=== PATIENT | female | born 1980 ===

== ENCOUNTER 2017-01-18 21:54 | Inpatient (IN) | payer MEDICARE, MEDICAID ==
[2017-01-18 22:09] VITALS: BMI 40.2
--- NOTE | 2017-01-18 23:17 | C.PDOC ---
History Of Present Illness A 36 year old female was recently discharged from [facility] earlier today and was [place]. Patient was BIBA. Patient denies any suicidal/homicidal ideation, fever, chills, or any other complaints. Time Seen by Provider: 01/18/17 22:07 Chief Complaint (Nursing): Psychiatric Evaluation History Per: Patient History/Exam Limitations: no limitations Onset/Duration Of Symptoms: Hrs Current Symptoms Are (Timing): Still Present Suicide/Self Injury Attempted (Context): None Modifying Factor(s): None Severity: None Associated Symptoms: denies: Suicidal Thoughts, Suicidal Plan Recent travel outside of the [place]: No Past Medical History Reviewed: Historical Data, Nursing Documentation, Vital Signs Vital Signs: Last Vital Signs Temp 98.4 F 01/18/17 22:26 Pulse 66 01/18/17 22:26 Resp 18 01/18/17 22:26 BP 144/85 01/18/17 22:26 Pulse Ox 97 01/18/17 23:19 - Medical History PMH: Asthma, Schizophrenia Family History: States: Unknown Family Hx - Social History Hx Alcohol Use: No Hx Substance Use: No - Immunization History Hx Tetanus Toxoid Vaccination: No Hx Influenza Vaccination: No Hx Pneumococcal Vaccination: No Review Of Systems Except As Marked, All Systems Reviewed And Found Negative. Constitutional: Negative for: Fever, Chills Gastrointestinal: Negative for: Nausea, Vomiting, Diarrhea Psych: Positive for: Other (Found wandering around at the bus station after being discharged from [facility] earlier today.). Negative for: Suicidal ideation Physical Exam - Physical Exam Appears: No Acute Distress, Confused, Other (Flat affect. Confused. Morbidly obese. NO apparent distress.) Skin: Normal Color, Warm, Dry Head: Atraumatic, Normacephalic Eye(s): bilateral: Normal Inspection Cardiovascular: Rhythm Regular Respiratory: Normal Breath Sounds, No Rales, No Rhonchi, No Wheezing Gastrointestinal/Abdominal: Soft, No Tenderness, No Guarding, No Rebound Extremity: Normal ROM, No Tenderness Neurological/Psych: Oriented x3 Gait: Steady ED Course And Treatment - Laboratory Results Result Diagrams: 01/18/17 23:55 01/18/17 23:55 Lab Interpretation: Normal (ua, tox, ASA/tylenol neg.) Urine POC: Negative O2 Sat by Pulse Oximetry: 97 Medical Decision Making Medical Decision Makin: persistent mental illness pending Crisis eval Disposition - Disposition Disposition Time: 01:00 Condition: GOOD - Clinical Impression Clinical Impression: Chronic mental illness - Scribe Statement The provider has reviewed the documentation as recorded by the Feiibmariely Draper Provider Scribe Attestation: All medical record entries made by the Scribe were at my direction and personally dictated by me. I have reviewed the chart and agree that the record accurately reflects my personal performance of the history, physical exam, medical decision making, and the department course for this patient. I have also personally directed, reviewed, and agree with the discharge instructions and disposition. Physician Patient Turnover Patient Signed Over To: [facility] Handoff Comments: pending Crisis Eval
[2017-01-19 00:04] LABS: BASO # 0.1 K/uL (0.0-0.2); BASO % 0.6 % (0.0-2.0); EOS # 0.1 K/uL (0.0-0.7); EOS % 0.6 % (0.0-4.0); HEMATOCRIT 40.5 % (34.0-47.0); LYMPH # 2.1 K/uL (1.0-4.3); LYMPH % 20.9 % (20.0-40.0); MEAN CORPUSCULAR HEMOGLOBIN 28.5 pg (27.0-31.0); MEAN CORPUSCULAR HGB CONC 32.8 g/dL (33.0-37.0); MEAN PLATELET VOLUME 8.7 fL (7.2-11.7); MONO # 0.7 K/uL (0.0-0.8); MONO % 6.5 % (0.0-10.0); RED CELL DISTRIBUTION WIDTH 13.7 % (11.5-14.5); WHITE BLOOD COUNT 10.1 K/uL (4.8-10.8)
[2017-01-19 00:10] LABS: RBC URINE 9 /hpf (0-3); URINE BACTERIA OCC (<OCC); URINE BILIRUBIN NEGATIVE (NEGATIVE); URINE COLOR Amber (YELLOW); URINE GLUCOSE (UA) NORMAL (Normal); URINE KETONE 2+ mg/dL (NEGATIVE); URINE LEUKOCYTE ESTERASE NEG Leu/uL (Negative); URINE PROTEIN 2+ mg/dL (NEGATIVE); URINE UROBILINOGEN NORMAL mg/dL (0.2-1.0); WBC URINE 3 /hpf (0-5)
[2017-01-19 00:11] LABS: URINE BLOOD 1+ (NEGATIVE)
[2017-01-19 00:13] LABS: CHLORIDE 95 mmol/L (98-107)
[2017-01-19 00:14] LABS: POTASSIUM 3.7 mmol/L (3.6-5.2); SODIUM 138 mmol/L (132-148)
[2017-01-19 00:16] LABS: AST/SGOT 46 U/L (14-36); BILIRUBIN,TOTAL 0.7 mg/dL (0.2-1.3); BLOOD UREA NITROGEN 11 mg/dL (7-17); CARBON DIOXIDE 26 mmol/L (22-30); GFR AFRICAN-AMERICAN > 60; TOTAL PROTEIN 8.6 g/dL (6.3-8.3)
[2017-01-19 00:17] LABS: ALCOHOL SERUM < 10 mg/dl (0-10); ALKALINE PHOSPHATASE 126 U/L (38-126); ALT/SGPT 55 U/L (9-52); GLUCOSE,RANDOM 128 mg/dL (65-105)
--- NOTE | 2017-01-19 07:52 | RAD ---
PROCEDURE: CHEST RADIOGRAPH, 1 VIEW HISTORY: baseline COMPARISON: None available. FINDINGS: LUNGS: Suboptimal portable study due to patient's body habitus and portable technique. Small perihilar opacity seen. PLEURA: No pneumothorax or pleural fluid seen. CARDIOVASCULAR: Left silhouette appears prominent in size this portable study. OSSEOUS STRUCTURES: No significant abnormalities. VISUALIZED UPPER ABDOMEN: Normal. OTHER FINDINGS: None. IMPRESSION: Suboptimal study due to portable technique and patient's body habitus. The possibility of mild congestion cannot be excluded. Follow-up exam is suggested.
[2017-01-19 08:39] VITALS: O2SAT 96
[2017-01-19 13:02] LABS: THYROID STIMULATING HORMONE 1.8 mIU/L (0.46-4.68)
[2017-01-19] MEDS ORDERED: Pneumococcal 23-Valent Vaccine IM ONE (13:30)
[2017-01-19] MEDS ORDERED: Vitamins A & D Oint UD Foilpak TOP PRN (16:25)
--- NOTE | 2017-01-19 17:47 | PCM.PSYCH ---
Initial Psychiatric Evaluation - Initial Psychiatric Evaluation History of Present Illness and Precipitating Events: Attempted to evaluate the patient, in the presence of her nurse and social sciences chair. Patient was confused but alert. Patient for every question patient reported she couldn't recall. Couldn't continue evaluation. We will medicate the patient and stabilize and will attempt to evaluate the patient tomorrow again. Current Medications: Active Medications Generic Name Dose Route Start Last Admin Trade Name Freq PRN Reason Stop Dose Admin Aripiprazole 10 mg 01/19/17 10:00 01/19/17 11:28 Abilify PO 10 mg DAILY SAQIB Administration Clotrimazole 1 gm 01/19/17 16:39 Lotrimin 1% TOP BID PRN fungal rash Haloperidol 5 mg 01/19/17 09:27 01/19/17 17:04 Haldol PO 5 mg Q1H PRN Administration agitation, max 4x/24h Hydroxyzine HCl 25 mg 01/19/17 09:27 Atarax PO Q4H PRN Anxiety Ibuprofen 600 mg 01/19/17 09:27 Motrin Tab PO Q6H PRN Pain, moderate (4-7) Lorazepam 1 mg 01/19/17 09:27 01/19/17 17:04 Ativan PO 1 mg Q6H PRN Administration severe anxiety or agitation Mirtazapine 15 mg 01/19/17 22:00 Remeron PO HS SAQIB Trazodone HCl 50 mg 01/19/17 09:27 Desyrel PO HS PRN Insomnia Vitamin A 1 ea 01/19/17 16:25 Vitamin A & D Oint Ud Foilpak TOP DAILY PRN Dry skin Past Psychiatric History - Past Psychiatric History Pertinent Medical Hx (Current Medical&Sleep Prob, Allergies): Allergies Allergy/AdvReac Type Severity Reaction Status Date / Time No Known Allergies Allergy Verified 01/18/17 22:09 Albuterol 0.5% Inhal Cecilia (5 mg/ ml) 20 ml 2 puff PO BID 01/18/17 Risperdal 1 mg pe PO BID 01/18/17
[2017-01-19] MEDS: Clotrimazole 1% Cream(30 gm) TOP PRN (21:31)
[2017-01-20] MEDS: Clotrimazole 1% Cream(30 gm) TOP PRN (13:10)
--- NOTE | 2017-01-20 14:16 | PCM.PSYCH ---
Initial Psychiatric Evaluation - Initial Psychiatric Evaluation Type of Admission: Voluntary Legal Status: Capacity Chief Complaint (in patient's own words): I'm struggling with different things including reading and singing History of Present Illness and Precipitating Events: Patient is a 36 years old, single, unemployed, female who was admitted because of bizarre behavior. Today patient was more clear in providing information but still patient was poor historian. Patient reported history of schizoaffective disorder noncompliant with treatment. Reported she was taking Abilify but stopped taking because of no food. Patient reported that she was homeless and was wandering on the train station, disoriented and was brought to [facility] ER and was admitted. Patient reported no depression but decreased sleep and appetite but gaining some weight. Reported having suicidal ideations at times. Last had few weeks ago with plan to cut her throat with a knife. Did not get any treatment. Reported history of one suicidal attempt by suffocation in the past as according to patient the voices were telling her to do so. Also reported having auditory hallucinations. Reported the voices tell her to do different things and tell her bad things. Reported sometimes they're command and telling her to kill herself and others. Reported as a result of those command hallucinations, once she heard her mother. Patient reported multiple psychiatric admissions in the past in different hospitals. Denied use of any drugs including alcohol cocaine cannabis and heroin. Patient was born in [place], was migrated to [facility] at the age of 7 years with family, has GED. Patient is not working. Her last job was in 2003. Stopped working because of psychiatric problems. Currently she is on SSDI. Her height is 5 feet 3 inches and weight is 354 pounds. Before coming to the hospital she [facility] jail. Current Medications: Active Medications Generic Name Dose Route Start Last Admin Trade Name Freq PRN Reason Stop Dose Admin Aripiprazole 10 mg 01/19/17 10:00 01/20/17 09:03 Abilify PO 10 mg DAILY SAQIB Administration Clotrimazole 1 gm 01/19/17 16:39 01/20/17 13:10 Lotrimin 1% TOP 1 applic BID PRN Administration fungal rash Haloperidol 5 mg 01/19/17 09:27 01/20/17 13:12 Haldol PO 5 mg Q1H PRN Administration agitation, max 4x/24h Hydroxyzine HCl 25 mg 01/19/17 09:27 01/20/17 09:03 Atarax PO 25 mg Q4H PRN Administration Anxiety Ibuprofen 600 mg 01/19/17 09:27 Motrin Tab PO Q6H PRN Pain, moderate (4-7) Lorazepam 1 mg 01/19/17 09:27 01/20/17 13:13 Ativan PO 1 mg Q6H PRN Administration severe anxiety or agitation Mirtazapine 15 mg 01/19/17 22:00 01/19/17 21:24 Remeron PO 15 mg HS SAQIB Administration Nitrofurantoin Macrocrystals 100 mg 01/20/17 14:15 Macrobid PO 01/26/17 14:15 Q12H SAQIB Trazodone HCl 50 mg 01/19/17 09:27 01/19/17 21:24 Desyrel PO 50 mg HS PRN Administration Insomnia Vitamin A 1 ea 01/19/17 16:25 Vitamin A & D Oint Ud Foilpak TOP DAILY PRN Dry skin Past Psychiatric History - Past Psychiatric History Previous Treatment History: Inpatient History of Abuse: None reported History of ETOH/Drug Use: See HPI History of Family Illness: Reported history of schizophrenia in her brother and mother. Also reported history of alcohol use in brother and mother. Pertinent Medical Hx (Current Medical&Sleep Prob, Allergies): Allergies Allergy/AdvReac Type Severity Reaction Status Date / Time No Known Allergies Allergy Verified 01/18/17 22:09 Albuterol 0.5% Inhal Cecilia (5 mg/ ml) 20 ml 2 puff PO BID 01/18/17 Risperdal 1 mg pe PO BID 01/18/17 Sleep apnea Obesity Asthma Fatty liver Review of Systems - Psychiatric Psychiatric: Depression, Paranoia Mental Status Examination - Personal Presentation Personal Presentation: Looks stated age - Affect Affect: Flat - Motor Activity Motor Activity: Calm - Reliability in Providing Information Reliability in Providing Information: Fair - Speech Speech: Relevant - Mood Mood: Depressed - Formal Thought Process Formal Thought Process: Loosening of associations - Hallucinations/Delusions Hallucinations: Other (None reported at the time of evaluation) Delusions: Other - Obsessions/Compulsions Obsessions: None Compulsions: None - Cognitive Functions Orientation: Person, Place, Situation, Time Sensorium: Alert Attention/Concentration: Attentive Abstract Thinking: Java Judgement: Imparied, as evidence by: Other Memory: Recent intact, as evidence by: Other, Remote intact, as evidenced by: Abilit to recall sig. life events - Risk Risk: Diminished functioning - Strength & Assets Inventory Strength & Assets Inventory: Cooperative - Limitations Limitations: Other DSM 5 DX - DSM 5 DSM 5 Diagnosis: Schizoaffective disorder depressive type - Recommended/Plan of Treatment Treatment Recommendations and Plan of Treatment: Patient education Supportive therapy We will start home medications When necessary medications Will offer long-acting injections Projected ELOS: 8-10 days - Smoking Cessation Smoking Cessation Initiated: No Reason for not providing: Patient doesn't smoke cigarettes
--- NOTE | 2017-01-21 11:26 | PCM.PYCHPN ---
Psychiatric Progress Note - Psychiatric Progress Note Patient seen today, length of contact: 15 minutes Patient Chief Complaint: Pt seen for follow up Problems Identified/Issues Discussed: Pt seen, chart reviewed and case discussed with staff. Events leading up to admission were discussed with pt. States she was admitted because she didn't have anywhere to go and has to get "things in life in order. " Pt does not have a plan after discharge. At time of evaluation, pt's affect is flat, does not make eye contact, and some psychomotor agitation noted ( tapping foot). Denies suicidal ideation, homicidal ideation, and paranoia. When asked if she hears God's voice, pt responded with "I can't tell you that." Psychoeducation and support given. Medication Change: Yes (Abilify increased) Medical Record Reviewed: Yes Mental Status Examination - Cognitive Function Orientation: Person, Place, Situation, Time Memory: Impaired Attention: WNL Concentration: WNL Association: Loose - Mood Mood: Depressed - Affect Affect: Blunted - Speech Speech: Appropriate - Formal Thought Process Formal Thought Process: Loosening of associations - Suicidal Ideation Suicidal Ideation: No - Homicidal Ideation Homicidal Ideation: No Goal/Treatment Plan - Goal/Treatment Plan Need for Continued Stay: Remain at risks for inpatient hospitalization, Discharge may exacerbated symptoms, Severe functional impairment Progress Toward Problem(s) and Goals/Treatment Plan: Schizoaffective disorder: -Increase Abilify to 15mg PO daily -As needed meds -Supportive psychotherapy -Attend groups and activities -Aftercare planning
--- NOTE | 2017-01-22 13:37 | PCM.PYCHPN ---
Psychiatric Progress Note - Psychiatric Progress Note Patient seen today, length of contact: 16 min Patient Chief Complaint: "I am OK. I think I will settle here" Problems Identified/Issues Discussed: The pt is seen, chart reviewed, case discussed with staff. The pt is compliant with medications and reports no side-effects. Symptoms are improving but needs more time to stabilize. Still religiously preoccupied and delusional. After care discussed, support and psychoeducation given. Medication Change: Yes (Abilify increased) Medical Record Reviewed: Yes Mental Status Examination - Cognitive Function Orientation: Person, Place, Situation, Time Memory: Impaired Attention: WNL Concentration: WNL Association: Loose - Mood Mood: Depressed - Affect Affect: Blunted - Speech Speech: Appropriate - Formal Thought Process Formal Thought Process: Delusions, Paranoia, Loosening of associations - Suicidal Ideation Suicidal Ideation: No - Homicidal Ideation Homicidal Ideation: No Goal/Treatment Plan - Goal/Treatment Plan Need for Continued Stay: Remain at risks for inpatient hospitalization, Discharge may exacerbated symptoms, Severe functional impairment Progress Toward Problem(s) and Goals/Treatment Plan: Schizoaffective disorder: -Increase Abilify to 20 mg PO daily -As needed meds -Supportive psychotherapy -Attend groups and activities -Aftercare planning Estimated Date of D/C: 01/25/17
[2017-01-23] MEDS ORDERED: cefTRIAXone (Rocephin) 250 mg Inj IM STA ×2 (11:02→11:59)
[2017-01-23] MEDS ORDERED: cefTRIAXone (Rocephin) 250 mg Inj IM ONE (12:00)
[2017-01-23] MEDS: Emtricitabine-Tenofovir 200 mg-300 mg Tab PO SCH (17:10)
--- NOTE | 2017-01-23 22:20 | PCM.PYCHPN ---
Psychiatric Progress Note - Psychiatric Progress Note Patient seen today, length of contact: 16 min Patient Chief Complaint: "I am happy" Problems Identified/Issues Discussed: The pt is seen, chart reviewed, events of last night discussed with the team. The pt is compliant with medications and reports no side-effects. Symptoms are improving very SLOWLY and needs more time to stabilize. After care discussed, support and psychoeducation given. She is unsure if she will stay here in [facility] or move back to [place]. Regarding last night, the patient claims that she was communicating with patient HAROLDO and that she "liked him" and that she had some "needs, too" and in the evening, she claims, they had sex. She is not sure if he ejaculated but she states he did penetrate her. She denies any forceful, against her will interaction. She even said that if we will punish him by discharging she also wants to be discharged. She goes on to say that if she is by him she may not care, however she had tubal ligation few years ago and that she may not be . She also refused Plan B tablet. All risks discussed and she still did not want. However, after refusing antibiotics contract technical writer convinced her to take the antibiotics and she took them except for one of them. Again, all risks of not taking the full regimen discussed and she understood but did not change her mind. How to avoid such incidents discussed. Support given. All ramifications are also discussed and she did not request anything else, and agreed to stay. Medication Change: Yes (Abilify increased) Medical Record Reviewed: Yes Mental Status Examination - Cognitive Function Orientation: Person, Place, Situation, Time Memory: Impaired Attention: WNL Concentration: Poor Association: Loose - Mood Mood: Depressed, Anxious - Affect Affect: Blunted - Speech Speech: Appropriate - Formal Thought Process Formal Thought Process: Delusions, Paranoia, Loosening of associations - Suicidal Ideation Suicidal Ideation: No - Homicidal Ideation Homicidal Ideation: No Goal/Treatment Plan - Goal/Treatment Plan Need for Continued Stay: Remain at risks for inpatient hospitalization, Discharge may exacerbated symptoms, Severe functional impairment Progress Toward Problem(s) and Goals/Treatment Plan: Schizoaffective disorder: -Abilify 20 mg PO daily -As needed meds -Supportive psychotherapy -Attend groups and activities -Aftercare planning -Case management application Estimated Date of D/C: 01/28/17
--- NOTE | 2017-01-24 12:48 | PCM.PYCHPN ---
Psychiatric Progress Note - Psychiatric Progress Note Patient seen today, length of contact: 15 min Patient Chief Complaint: "I'm OK" Problems Identified/Issues Discussed: The pt is seen, chart reviewed, events of last night discussed with the team. The pt is compliant with medications and reports no side-effects. She got abx but still denies the Plan B pill After care is likely here in [facility] Still psychotic, has mixed sxs (depressed and religiously preoccupied, hearing voices at times) Medication Change: Yes (Abilify Maintena tomorrow) Medical Record Reviewed: Yes Mental Status Examination - Cognitive Function Orientation: Person, Place, Situation, Time Memory: Impaired Attention: WNL Concentration: Poor Association: Loose - Mood Mood: Depressed, Anxious - Affect Affect: Blunted - Speech Speech: Appropriate - Formal Thought Process Formal Thought Process: Delusions, Paranoia, Loosening of associations - Suicidal Ideation Suicidal Ideation: No - Homicidal Ideation Homicidal Ideation: No Goal/Treatment Plan - Goal/Treatment Plan Need for Continued Stay: Remain at risks for inpatient hospitalization, Discharge may exacerbated symptoms, Severe functional impairment Progress Toward Problem(s) and Goals/Treatment Plan: Schizoaffective disorder: -Abilify 20 mg PO daily -- Maintena tomorrow -As needed meds -Supportive psychotherapy -Attend groups and activities -Aftercare planning -Case management application Estimated Date of D/C: 01/28/17
--- NOTE | 2017-01-24 13:25 | CARD ---
APPROVED REPORT EKG Measurement Heart [id number] <Conclusion> Normal sinus rhythm Right axis deviation Nonspecific T wave abnormality Abnormal ECG
[2017-01-24] MEDS: Emtricitabine-Tenofovir 200 mg-300 mg Tab PO SCH (17:37)
[2017-01-25] MEDS ORDERED: ABILIFY MAINTENA 400 MG IM ONE (10:00)
[2017-01-25] MEDS: Emtricitabine-Tenofovir 200 mg-300 mg Tab PO SCH (18:06)
--- NOTE | 2017-01-26 07:58 | PCM.PYCHPN ---
Psychiatric Progress Note - Psychiatric Progress Note Patient seen today, length of contact: 15 min Patient Chief Complaint: "When will I leave?" Problems Identified/Issues Discussed: The pt is seen, chart reviewed, events of last night discussed with the team. The pt is compliant with medications and reports no side-effects. She received her Abilify Maintena shot today. She still has mixed sxs (depressed and religiously preoccupied, hearing voices at times) but improving. Compared to day 1, she is much improved. After care will [facility] at [facility], not [facility] as she is homeless. Medication Change: No Medical Record Reviewed: Yes Mental Status Examination - Cognitive Function Orientation: Person, Place, Situation, Time Memory: Impaired Attention: WNL Concentration: Poor Association: Loose - Mood Mood: Depressed, Anxious - Affect Affect: Blunted - Speech Speech: Appropriate - Formal Thought Process Formal Thought Process: Delusions (less rigid) - Suicidal Ideation Suicidal Ideation: No - Homicidal Ideation Homicidal Ideation: No Goal/Treatment Plan - Goal/Treatment Plan Need for Continued Stay: Remain at risks for inpatient hospitalization, Discharge may exacerbated symptoms, Severe functional impairment Progress Toward Problem(s) and Goals/Treatment Plan: Schizoaffective disorder: -Abilify 20 mg PO daily + MAintena given -As needed meds -Supportive psychotherapy -Attend groups and activities -Aftercare planning -Case management application Estimated Date of D/C: 01/28/17
--- NOTE | 2017-01-26 11:25 | PCM.PYCHPN ---
Psychiatric Progress Note - Psychiatric Progress Note Patient seen today, length of contact: 15 min Patient Chief Complaint: I'm feeling much better Problems Identified/Issues Discussed: Patient seen and evaluated, chart reviewed and discussed with the nurse. Patient appeared more disorganized and less internally preoccupied. Patient reports less irritability and agitation. Patient still appears paranoid and pacing back and forth in the hallways. however she denies any suicidal ideation or homicidal ideation. Supportive therapy and psychoeducation were given. Medication Change: No Medical Record Reviewed: Yes Mental Status Examination - Cognitive Function Orientation: Person, Place, Situation, Time Memory: Impaired Attention: WNL Concentration: Poor Association: Loose - Mood Mood: Depressed, Anxious - Affect Affect: Blunted - Speech Speech: Appropriate - Formal Thought Process Formal Thought Process: Delusions (less rigid), Paranoia - Suicidal Ideation Suicidal Ideation: No - Homicidal Ideation Homicidal Ideation: No Goal/Treatment Plan - Goal/Treatment Plan Need for Continued Stay: Remain at risks for inpatient hospitalization, Discharge may exacerbated symptoms, Severe functional impairment Progress Toward Problem(s) and Goals/Treatment Plan: Schizoaffective disorder: -Abilify 20 mg PO daily + MAintena given -As needed meds -Supportive psychotherapy -Attend groups and activities -Aftercare planning -Case management application Estimated Date of D/C: 01/28/17 - Smoking Cessation Smoking Cessation Initiated: No
--- NOTE | 2017-01-27 16:13 | PCM.PYCHPN ---
Psychiatric Progress Note - Psychiatric Progress Note Patient seen today, length of contact: 15 min Patient Chief Complaint: I'm okay Problems Identified/Issues Discussed: Patient seen and evaluated, chart reviewed and discussed with the nurse. As per the staff patient is becoming paranoid and delusional about being . Although she is taking care of her hygiene and appears more organized but she is internally preoccupied with . She reports improvement in anxiety and agitation. she remained calm and cooperative and denies any auditory or visual hallucinations. she is taking medication and denied any side effects. Supportive therapy and psychoeducation were given. Medication Change: No Medical Record Reviewed: Yes Mental Status Examination - Cognitive Function Orientation: Person, Place, Situation, Time Memory: Impaired Attention: WNL Concentration: WNL Association: Loose Fund of Knowledge: Poor - Mood Mood: Depressed, Anxious - Affect Affect: Blunted - Speech Speech: Appropriate - Formal Thought Process Formal Thought Process: Delusions (less rigid), Paranoia, Loosening of associations - Suicidal Ideation Suicidal Ideation: No - Homicidal Ideation Homicidal Ideation: No Goal/Treatment Plan - Goal/Treatment Plan Need for Continued Stay: Remain at risks for inpatient hospitalization, Discharge may exacerbated symptoms, Severe functional impairment Progress Toward Problem(s) and Goals/Treatment Plan: Schizoaffective disorder: -Abilify 20 mg PO daily + MAintena given -remeron 15 mg by mouth daily at bedtime -trazodone 50 mg -As needed meds -Supportive psychotherapy -Attend groups and activities -Aftercare planning -Case management application Estimated Date of D/C: 01/28/17 - Smoking Cessation Smoking Cessation Initiated: No
[2017-01-28] MEDS: Clotrimazole 1% Cream(30 gm) TOP PRN (11:53)
--- NOTE | 2017-01-28 14:10 | PCM.PYCHPN ---
Psychiatric Progress Note - Psychiatric Progress Note Patient seen today, length of contact: 15 min Patient Chief Complaint: "I am OK" Problems Identified/Issues Discussed: The pt is seen, chart reviewed, events of last night discussed with the team. The pt is compliant with medications and reports no side-effects. Pt. is preoccupied w/ the idea that she might be , despite having a surgical hx of a b/l tubal ligation. Still improving After care will be at [facility], not [facility] as she is homeless currently. Medication Change: No Medical Record Reviewed: Yes Mental Status Examination - Cognitive Function Orientation: Person, Place, Situation, Time Memory: Impaired Attention: WNL Concentration: WNL Association: Loose Fund of Knowledge: Poor - Mood Mood: Depressed, Anxious - Affect Affect: Blunted - Speech Speech: Appropriate - Formal Thought Process Formal Thought Process: Delusions (less rigid), Paranoia, Loosening of associations - Suicidal Ideation Suicidal Ideation: No - Homicidal Ideation Homicidal Ideation: No Goal/Treatment Plan - Goal/Treatment Plan Need for Continued Stay: Remain at risks for inpatient hospitalization, Discharge may exacerbated symptoms, Severe functional impairment Progress Toward Problem(s) and Goals/Treatment Plan: Schizoaffective disorder: -Abilify 20 mg PO daily + MAintena given -As needed meds -Supportive psychotherapy -Attend groups and activities -Aftercare planning -Case management application Possible -Urine HCG Estimated Date of D/C: 01/30/17 If changed, why: not ready
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
[2017-01-30 06:44] VITALS: RESP 20
--- NOTE | 2017-01-30 14:32 | PCM.PYCHPN ---
Psychiatric Progress Note - Psychiatric Progress Note Patient seen today, length of contact: 15 min Patient Chief Complaint: Living situation upon discharge is still unsettled. Problems Identified/Issues Discussed: The pt is seen, chart reviewed, events of last night discussed with the team. The pt is compliant with medications. Pt. reports mild tremors that started two days ago and that she attributes to her Abilify. Pt. states that she "can handle it." Pt. reports positive mood and displays positive affect. Pt. appears organized. Pt. is still determined to stay away from her family, and once again expressed interest to go to a senior care. Pt. was encouraged to reconsider staying at [facility] in [place] even though she does not want to go back there - Pt. states that she had a bad experience w/ a rooommate there. Pt. was encouraged to reach out to [facility] to inquire about an alternate living arrangement - Pt. agrees that this is a good idea. Medication Change: No Medical Record Reviewed: Yes Mental Status Examination - Cognitive Function Orientation: Person, Place, Situation, Time Memory: Intact Attention: WNL Concentration: WNL Association: Loose Fund of Knowledge: Poor - Mood Mood: Depressed, Anxious - Affect Affect: Blunted - Speech Speech: Appropriate - Formal Thought Process Formal Thought Process: Delusions (less rigid), Paranoia, Loosening of associations - Suicidal Ideation Suicidal Ideation: No - Homicidal Ideation Homicidal Ideation: No Goal/Treatment Plan - Goal/Treatment Plan Need for Continued Stay: Remain at risks for inpatient hospitalization, Discharge may exacerbated symptoms, Severe functional impairment Progress Toward Problem(s) and Goals/Treatment Plan: Schizoaffective disorder: -Abilify 20 mg PO daily + MAintena given -As needed meds -Supportive psychotherapy -Attend groups and activities -Aftercare planning -Case management application Possible -Urine HCG Estimated Date of D/C: 01/30/17
--- NOTE | 2017-01-31 14:25 | PCM.PYCHPN ---
Psychiatric Progress Note - Psychiatric Progress Note Patient seen today, length of contact: 19 min Patient Chief Complaint: "I won't go back to [place]" Problems Identified/Issues Discussed: Pt. seen, chart reviewed, and discussed w/ team. Pt. reports sleeping well. Pt. admits feeling hyper and anxious yesterday. Pt. states that she now has realistic goals, including going to school. However , Pt. would still prefer to live at the longterm rather than return to her rental in [place] b/c she dislikes the roommate, and to the [facility] - a day program. Pt states that she wants a different setting. Pt. was encouraged to consider the resources that are available at [facility], but wont be available at the longterm. Pt. is adamant that she does not want to go back, and that she does not want to live with her roommate. Pt. gave consent to contact case management coordinator at [facility] and case management coordinator at [facility]. Toll Line Mechanic called and spoke with Ban and Ramez respectively. They said they had closed her case and she likely lost her apt already. Sw will refer her to [facility] in [facility]. Medication Change: No Medical Record Reviewed: Yes Mental Status Examination - Cognitive Function Orientation: Person, Place, Situation, Time Memory: Intact Attention: WNL Concentration: WNL Association: Loose Fund of Knowledge: Poor Decription of patient's judgement and insights: Poor judgment. Poor reality testing. - Mood Mood: Anxious - Affect Affect: Blunted - Speech Speech: Appropriate - Formal Thought Process Formal Thought Process: Delusions (less rigid), Paranoia, Loosening of associations - Suicidal Ideation Suicidal Ideation: No - Homicidal Ideation Homicidal Ideation: No Goal/Treatment Plan - Goal/Treatment Plan Need for Continued Stay: Remain at risks for inpatient hospitalization, Discharge may exacerbated symptoms, Severe functional impairment Progress Toward Problem(s) and Goals/Treatment Plan: Schizoaffective disorder: -Abilify 20 mg PO daily + MAintena given -As needed meds -Supportive psychotherapy -Attend groups and activities -Aftercare planning -Case management application Estimated Date of D/C: 02/01/17 If changed, why: not stable
[2017-01-31] MEDS ORDERED: Albuterol HFA 90 mcg/actuation (8 g) INH PRN (19:58)
[2017-02-01 07:35] VITALS: BP 113/70; PULSE 61; TEMP 97.9
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
== END 2017-02-01 12:10 | disposition home or self-care (01) | DRG 885 ==
LOC: C.ER 21:54 → C.9OBSV 01-19 02:13 → OBSVTOIN 01-19 08:02 → UNDODISOB 01-19 08:03 → C.9E 01-19 08:09 → C.5E 01-19 08:39
PROVIDERS: ADMIT Emergency Medicine; ATTEND Psychiatry & Neurology Psychiatry
PROC: GZHZZZZ Group Psychotherapy (ICD-10-PCS; principal; 2017-01-19)
PROC: GZ56ZZZ Individual Psychotherapy, Supportive (ICD-10-PCS; 2017-01-19)
DX: F25.0 Schizoaffective disorder, bipolar type (principal); Z91.19 Patient's noncompliance with other medical treatment and regimen; K76.0 Fatty (change of) liver, not elsewhere classified; E66.9 Obesity, unspecified; G47.30 Sleep apnea, unspecified; J45.909 Unspecified asthma, uncomplicated; Z59.0 Homelessness

== ENCOUNTER 2017-02-21 11:27 | Inpatient (IN) | payer MEDICARE, MEDICAID ==
[2017-02-21 11:27] VITALS: BMI 40.2
--- NOTE | 2017-02-21 12:04 | C.PDOC ---
History Of Present Illness <Jigna Syed - Last Filed: 02/21/17 14:15> <Annette Barnes - Last Filed: 02/22/17 11:19> A 36 year old female with a Hx of bipolar and schizoaffective disorder, presents to the ER for psychiatric evaluation. Patient notes being not feeling herself and reports having running thoughts. Patient is complying with her medications. Patient denies homicidal or suicidal ideation, or any other complaints. (Jigna Syed) History Per: Patient History/Exam Limitations: no limitations Onset/Duration Of Symptoms: Days Current Symptoms Are (Timing): Still Present Suicide/Self Injury Attempted (Context): None Modifying Factor(s): None Severity: Mild Associated Symptoms: denies: Suicidal Thoughts, Suicidal Plan Additional History Per: Patient <Jigna Syed - Last Filed: 02/21/17 14:15> <Annette Barnes - Last Filed: 02/22/17 11:19> Time Seen by Provider: 02/21/17 11:41 Chief Complaint (Nursing): Psychiatric Evaluation Past Medical History Reviewed: Historical Data, Nursing Documentation, Vital Signs - Medical History PMH: Asthma, Bipolar Disorder, Schizophrenia Surgical History: Cholecystectomy Family History: States: Unknown Family Hx - Social History Hx Alcohol Use: No Hx Substance Use: No - Immunization History Hx Tetanus Toxoid Vaccination: No Hx Influenza Vaccination: No Hx Pneumococcal Vaccination: No <Jigna Syed - Last Filed: 02/21/17 14:15> Review Of Systems Except As Marked, All Systems Reviewed And Found Negative. Psych: Positive for: Other (Running thoughts. Not feeling herself.). Negative for: Suicidal ideation, Withdrawal <Jigna Syed - Last Filed: 02/21/17 14:15> Physical Exam - Physical Exam Appears: Non-toxic, No Acute Distress, Other (Appears anxious, preoccupied with thoughts, internallyl disturbed. Obese) Skin: Warm, Dry Head: Atraumatic, Normacephalic Eye(s): bilateral: Normal Inspection, EOMI Nose: Normal Oral Mucosa: Moist Neck: Normal ROM, Supple Chest: Symmetrical Cardiovascular: Rhythm Regular, No Murmur Respiratory: Normal Breath Sounds, No Rales, No Rhonchi, No Wheezing Extremity: Normal ROM, No Deformity, No Swelling Neurological/Psych: Oriented x3, Normal Speech, Other (No focal deficit) <Jigna Syed - Last Filed: 02/21/17 14:15> ED Course And Treatment - Laboratory Results Result Diagrams: 02/21/17 12:02 02/21/17 12:02 Lab Interpretation: No Acute Changes O2 Sat by Pulse Oximetry: 98 (Room air) Pulse Ox Interpretation: Normal <Jigna Syed - Last Filed: 02/21/17 14:15> - Laboratory Results Result Diagrams: 02/21/17 12:02 02/21/17 12:02 <Annette Barnes - Last Filed: 02/22/17 11:19> Medical Decision Making <Jigna Syed - Last Filed: 02/21/17 14:15> <Annette Barnes - Last Filed: 02/22/17 11:19> Medical Decision Making: Plans: -Labs -Crisis evaluation Labs ordered and reviewed. In my clinical judgment patient is medically cleared and stable for psychiatric admission. As per construction pit worker Rose who spoke with psychiatrist Dr Mendoza, patient is to be admitted for schizophrenia (Jigna Syed Dagoberto) Disposition - Disposition Disposition Time: 14:15 - POA Present On Arrival: None <Jigna Syed - Last Filed: 02/21/17 14:15> <Annette Barnes - Last Filed: 02/22/17 11:19> - Disposition Disposition: HOSPITALIZED Condition: STABLE - Clinical Impression Clinical Impression: Schizophrenia - Scribe Statement The provider has reviewed the documentation as recorded by the Scribe <Jigna Syed Dagoberto - Last Filed: 02/21/17 14:15> - PA / SHANKER OUT / Resident Statement /DO has reviewed & agrees with the documentation as recorded. <Annette Barnes - Last Filed: 02/22/17 11:19> - Scribe Statement Rony rausch All medical record entries made by the Scribe were at my direction and personally dictated by me. I have reviewed the chart and agree that the record accurately reflects my personal performance of the history, physical exam, medical decision making, and the department course for this patient. I have also personally directed, reviewed, and agree with the discharge instructions and disposition. (Jigna Syed) Decision To Admit - Pt Status Changed To: Hospital Disposition Of: Inpatient - Admit Certification Admit to Inpatient:: After my assessment, the patient will require hospitalization for at least two midnights. This is because of the severity of symptoms shown, intensity of services needed, and/or the medical risk in this patient being treated as an outpatient. - InPatient: Physician Admission Certification: I certify that this patient requires 2 or more midnights of care for the following reason:: Patient for admission of schizophrenia - . Bed Request Type: Psychiatry Admitting Physician: Sky Mendoza <Jigna Syed - Last Filed: 02/21/17 14:15> <Annette Barnes - Last Filed: 02/22/17 11:19> - . Patient Diagnosis: Schizophrenia
[2017-02-21 12:27] LABS: BASO # 0.1 K/uL (0.0-0.2); BASO % 1.2 % (0.0-2.0); EOS # 0.2 K/uL (0.0-0.7); HEMATOCRIT 39.3 % (34.0-47.0); LYMPH # 1.6 K/uL (1.0-4.3); LYMPH % 27.3 % (20.0-40.0); MEAN CELL VOLUME 88.5 fL (81.0-99.0); MEAN CORPUSCULAR HEMOGLOBIN 28.7 pg (27.0-31.0); MEAN CORPUSCULAR HGB CONC 32.5 g/dL (33.0-37.0); MEAN PLATELET VOLUME 9.1 fL (7.2-11.7); MONO # 0.4 K/uL (0.0-0.8); MONO % 6.4 % (0.0-10.0)
[2017-02-21 12:29] LABS: RBC URINE 2 /hpf (0-3); URINE BILIRUBIN NEGATIVE (NEGATIVE); URINE BLOOD NEGATIVE (NEGATIVE); URINE COLOR Yellow (YELLOW); URINE GLUCOSE (UA) NORMAL (Normal); URINE KETONE TRACE mg/dL (NEGATIVE); URINE LEUKOCYTE ESTERASE NEG Leu/uL (Negative); URINE PROTEIN 1+ mg/dL (NEGATIVE); URINE UROBILINOGEN NORMAL mg/dL (0.2-1.0); WBC URINE 1 /hpf (0-5)
[2017-02-21 12:31] LABS: CHLORIDE 92 mmol/L (98-107); SODIUM 139 mmol/L (132-148)
[2017-02-21 12:32] LABS: POTASSIUM 3.5 mmol/L (3.6-5.2)
[2017-02-21 12:34] LABS: ALB/GLOB RATIO 1.1 (1.0-2.1); ALKALINE PHOSPHATASE 124 U/L (38-126); ALT/SGPT 55 U/L (9-52); AST/SGOT 38 U/L (14-36); BILIRUBIN,TOTAL 0.5 mg/dL (0.2-1.3); BLOOD UREA NITROGEN 10 mg/dL (7-17); CALCIUM 8.7 mg/dl (8.6-10.4); CARBON DIOXIDE 25 mmol/L (22-30); GFR AFRICAN-AMERICAN > 60; GLUCOSE,RANDOM 113 mg/dL (65-105); TOTAL PROTEIN 8.2 g/dL (6.3-8.3)
[2017-02-21 12:35] LABS: ALCOHOL SERUM < 10 mg/dl (0-10)
[2017-02-22] MEDS ORDERED: Albuterol HFA 90 mcg/actuation (8 g) INH PRN (10:36)
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
--- NOTE | 2017-02-23 14:05 | PCM.PYCHPN ---
Psychiatric Progress Note - Psychiatric Progress Note Patient seen today, length of contact: 15 min Patient Chief Complaint: I'm hearing voices. Problems Identified/Issues Discussed: Patient seen and evaluated, chart reviewed and discussed with the nurse. Patient remained disorganized and internally preoccupied. Patient remained isolated, confined and withdrawn. She still reports of hearing voices. Patient still appears paranoid and delusional. She reports depressed mood and feelings of hopelessness and helplessness. She is taking medication and denied any side effects. Supportive therapy and psychoeducation were given. Medication Change: Yes (start Remeron) Medical Record Reviewed: Yes Mental Status Examination - Cognitive Function Orientation: Person, Place, Situation, Time Memory: Intact Attention: Poor Concentration: Poor Association: Loose Fund of Knowledge: Poor - Mood Mood: Depressed, Anxious - Affect Affect: Constricted, Depressed - Speech Speech: Soft - Formal Thought Process Formal Thought Process: Hallucinations, Delusions, Paranoia, Loosening of associations - Suicidal Ideation Suicidal Ideation: No - Homicidal Ideation Homicidal Ideation: No Goal/Treatment Plan - Goal/Treatment Plan Need for Continued Stay: Discharge may exacerbated symptoms, Severe functional impairment Progress Toward Problem(s) and Goals/Treatment Plan: Schizoaffective disorder bipolar type CBT Psychoeducation Supportive therapy, group therapy, individual therapy Abilify 20 mg daily Neurontin 100 mg by mouth 3 times a day Trazodone 50 mg by mouth daily at bedtime Remeron 15 mg by mouth daily at bedtime HTN continue prescribed medications Monitor signs symptoms Obesity Monitor signs symptoms - Smoking Cessation Smoking Cessation Initiated: No
[2017-02-24 07:24] VITALS: O2SAT 95
[2017-02-24] MEDS ORDERED: Pneumococcal 23-Valent Vaccine IM ONE (10:00)
--- NOTE | 2017-02-24 15:59 | PCM.PYCHPN ---
Psychiatric Progress Note - Psychiatric Progress Note Patient seen today, length of contact: 15 min Patient Chief Complaint: I am feeling a little better Problems Identified/Issues Discussed: Patient seen and evaluated, chart reviewed and discussed with the nurse. As per staff, patient remained isolated, confined and withdrawn. Patient appeared a bit organized but remained internally preoccupied. She still reports of hearing voices and sill appears paranoid and delusional. She still reports depressed mood and feelings of hopelessness and helplessness. However she reports improvement in his sleep and appetite. She is taking medication and denied any side effects. Supportive therapy and psychoeducation were given. Medication Change: No Medical Record Reviewed: Yes Mental Status Examination - Cognitive Function Orientation: Person, Place, Situation, Time Memory: Intact Attention: Poor Concentration: Poor Association: Loose Fund of Knowledge: Poor - Mood Mood: Depressed, Anxious - Affect Affect: Constricted, Depressed - Speech Speech: Soft - Formal Thought Process Formal Thought Process: Hallucinations, Delusions, Paranoia, Loosening of associations - Suicidal Ideation Suicidal Ideation: No - Homicidal Ideation Homicidal Ideation: No Goal/Treatment Plan - Goal/Treatment Plan Need for Continued Stay: Discharge may exacerbated symptoms, Severe functional impairment Progress Toward Problem(s) and Goals/Treatment Plan: Schizoaffective disorder bipolar type CBT Psychoeducation Supportive therapy, group therapy, individual therapy Abilify 20 mg daily Neurontin 100 mg by mouth 3 times a day Trazodone 50 mg by mouth daily at bedtime Remeron 15 mg by mouth daily at bedtime HTN continue prescribed medications Monitor signs symptoms Obesity Monitor signs symptoms - Smoking Cessation Smoking Cessation Initiated: No
[2017-02-25] MEDS ORDERED: Magnesium Hydroxide Susp 30 ml UD PO PRN (15:22)
[2017-02-25] MEDS ORDERED: ABILIFY MAINTENA 400MG IM ONE (18:30)
--- NOTE | 2017-02-26 10:36 | PCM.PYCHPN ---
Psychiatric Progress Note - Psychiatric Progress Note Patient seen today, length of contact: 15 min Patient Chief Complaint: I'm feeling much better Problems Identified/Issues Discussed: Patient seen and evaluated, chart reviewed and discussed with the nurse. today patient reports improvement in the voices and improvement in her mood. she received the Abilify maintainna injection, yesterday and denies any side effects. She reports improvement in his sleep and appetite. She is taking medication and denied any side effects. Supportive therapy and psychoeducation were given. Medication Change: No Medical Record Reviewed: Yes Mental Status Examination - Cognitive Function Orientation: Person, Place, Situation, Time Memory: Intact Attention: WNL Concentration: Poor Association: WNL Fund of Knowledge: Poor (the) - Mood Mood: Anxious - Affect Affect: Constricted, Depressed - Formal Thought Process Formal Thought Process: Hallucinations, Delusions, Paranoia - Suicidal Ideation Suicidal Ideation: No - Homicidal Ideation Homicidal Ideation: No Goal/Treatment Plan - Goal/Treatment Plan Need for Continued Stay: Discharge may exacerbated symptoms, Severe functional impairment Progress Toward Problem(s) and Goals/Treatment Plan: Schizoaffective disorder bipolar type CBT Psychoeducation Supportive therapy, group therapy, individual therapy Abilify 20 mg daily Neurontin 100 mg by mouth 3 times a day Trazodone 50 mg by mouth daily at bedtime Remeron 15 mg by mouth daily at bedtime Abilify maintena 400 milligram IM stat HTN continue prescribed medications Monitor signs symptoms Obesity Monitor signs symptoms - Smoking Cessation Smoking Cessation Initiated: No
--- NOTE | 2017-02-26 10:37 | PCM.PYCHPN ---
Psychiatric Progress Note - Psychiatric Progress Note Patient seen today, length of contact: 15 min Patient Chief Complaint: I am feeling a little better Problems Identified/Issues Discussed: Patient seen and evaluated, chart reviewed and discussed with the nurse. As per staff, patient has started coming out of her room and appears more organized but remains internally preoccupied. She reports improvement in the voices and improvement in her mood. She also reports improvement in his sleep and appetite. She is taking medication and denied any side effects. Discussed Abilify maintainna injection with the patient, and patient agreed. Supportive therapy and psychoeducation were given. Medication Change: Yes (Abilify maintainna) Medical Record Reviewed: Yes Mental Status Examination - Cognitive Function Orientation: Person, Place, Situation, Time Memory: Intact Attention: WNL Concentration: Poor Association: WNL Fund of Knowledge: Poor - Mood Mood: Depressed, Anxious - Affect Affect: Constricted, Depressed - Speech Speech: Soft - Formal Thought Process Formal Thought Process: Hallucinations, Delusions, Paranoia - Suicidal Ideation Suicidal Ideation: No - Homicidal Ideation Homicidal Ideation: No Goal/Treatment Plan - Goal/Treatment Plan Need for Continued Stay: Discharge may exacerbated symptoms, Severe functional impairment Progress Toward Problem(s) and Goals/Treatment Plan: Schizoaffective disorder bipolar type CBT Psychoeducation Supportive therapy, group therapy, individual therapy Abilify 20 mg daily Neurontin 100 mg by mouth 3 times a day Trazodone 50 mg by mouth daily at bedtime Remeron 15 mg by mouth daily at bedtime Abilify maintena 400 milligram IM stat HTN continue prescribed medications Monitor signs symptoms Obesity Monitor signs symptoms - Smoking Cessation Smoking Cessation Initiated: No
--- NOTE | 2017-02-27 15:08 | PCM.PYCHPN ---
Psychiatric Progress Note - Psychiatric Progress Note Patient seen today, length of contact: 16 min Patient Chief Complaint: "I need to find housing" Problems Identified/Issues Discussed: Patient seen and evaluated, chart reviewed and discussed with nurse. Patient says she is feeling better and that her mood is good. She no longer hears voices or has any hallucinations. She denies feeling paranoid. Patient reports no side effects to the medication except for some fatigue. She says she slept last night. Per morning meeting patient was still not sleeping last night and disorganized. Patient denies any suicidal or homicidal ideation. Patient was pleasant and cooperative. She seemed motivated to find housing and a job. Support and psychoeducation were given. Medication Change: Yes (start Remeron) Medical Record Reviewed: Yes Mental Status Examination - Cognitive Function Orientation: Person, Place, Situation, Time Memory: Intact Attention: WNL Concentration: Poor Association: WNL Fund of Knowledge: Poor - Mood Mood: Depressed, Anxious - Affect Affect: Constricted, Depressed - Speech Speech: Soft - Formal Thought Process Formal Thought Process: Paranoia - Suicidal Ideation Suicidal Ideation: No - Homicidal Ideation Homicidal Ideation: No Goal/Treatment Plan - Goal/Treatment Plan Need for Continued Stay: Discharge may exacerbated symptoms, Severe functional impairment Progress Toward Problem(s) and Goals/Treatment Plan: Schizoaffective disorder bipolar type CBT Psychoeducation Supportive therapy, group therapy, individual therapy Abilify 20 mg daily Neurontin 100 mg by mouth 3 times a day Trazodone 50 mg by mouth daily at bedtime Remeron 15 mg by mouth daily at bedtime HTN continue prescribed medications Monitor signs symptoms Obesity Monitor signs symptoms
[2017-02-28 08:10] VITALS: BP 129/72; PULSE 51; RESP 18; TEMP 97.9
--- NOTE | 2017-02-28 09:47 | PCM.PYCHDC ---
Mental Status Examination - Mental Status Examination Orientation: Person, Place, Situation, Time Memory: Intact Mood: Neutral Affect: Constricted Speech: Soft Attention: WNL Concentration: WNL Association: WNL Fund of Knowledge: WNL Formal Thought Process: No Impairment Description of patient's judgement and insight: good, fair Psychotic Thoughts and Behaviors: denies any AVH Suicidal Ideation: No Current Homicidal Ideation?: No Discharge Summary - Discharge Note Reason for Hospitalization: Pt is a 36 y/o F, , currently homeless, had 4 children, on SSD with a psychiatric history of schizoaffective disorder, bipolar disorder and depression and a PMH of asthma, admitted for running thoughts. At first the Pt states the reason for her admission was she needed paperwork for the medications that she received the last time she was here.The Pt then admitted that she felt anxious that people were following her so she called 911. Pt states that she feels anxious because she thinks that there are people that she creferes to as "they" that will attack her, and that she will get hurt. She states that "they" use other peoples bodies. She also hears them say "get her", or "I want to see how far she gets with her God". Pt says that these people are bothered by the bible and follow a god called To[place]. They have helped the patients brother and mother deal with mental illness however the patient states that she doesn't need their help and prefers to do things her own way. "They" perform rituals but the patient refuses to provide further details. 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 She does not feel safe here since there are more men than women here and she does not know what is going to happen. She feels better outside than here since there is someone that works here that uses people's bodies with witchcraft. One of them is here and wants her but cannot have her because she believes in [place] Rom[place]. Pt also admits to hearing voices. She either hears a soft or a deep voice. The voices say that they will do hurtful things to her. Sometimes her mind feels overwhelmed. Admits to seeing things that are not really there, but not now. Feels like people can read her mind and thoughts, and is sometimes able to block it but finds it very difficult to do so. Denies suicidal or homicidal ideations. Does not rule out defending herself if threatened. Pt is feeling anxious and stressed and complains of subjective lack of sleep. Pt also complains of feeling cold and congestion. She is also aspiring to become a foreign clerk The patient has trouble maintaining eye contact, appears anxious, preoccupied with thoughts of orthodox other people trying to hurt her. She is otherwise very pleasant and cooperative. Plans after discharge include meeting with a foreign clerk Saturday and going to school Saturday. Consultations:: List each consultation separately and include: 1. Reason for request. 2. Findings. 3. Follow-up Summary of Hospital Course include:: 1. Description of specific treatment plan utilized for patients during their course of treatmen. 2. Summarize the time- course for resolution of acute symptoms and/or regressed behaviors. 3. Describe issues identified and worked on during hospitalization. 4. Describe medication utilized. 5. Describe medical problems identified and treated. 6. Reassessment of suicide risk Summary of Hospital Course: During the course of her stay, patient (pt) started progressively improving and she no longer remained irritable, anxious and paranoid. Her mood and paranoia were improved and she started attending groups and meetings and started socializing. Patient denied any feelings of hopelessness, helplessness, and worthlessness, denied any problem with the sleep or appetite, denied suicidal ideation or homicidal ideation. Pt denied any auditory or visual hallucinations. She received the monthly shot of Abilify maintaina 400 mg IM on 02/26/17, next shot is due on 03/28/17. patient was educated. Some changes were made in her current medications and patient was discharged on following medications. She tolerated these medications very well and denied any side effects. - Final Diagnosis (DSM 5) Condition upon Discharge: STABLE DSM 5: Schizoaffective disorder bipolar type Disposition: HOME/ ROUTINE Follow-up Treatment Plan: Education: Pt was educated and counseled about the risks and benefits of taking and not taking medications. Pt was educated and counseled about the risks of drinking and abusing drugs. Pt was educated and counseled to go to the ER or call 911 if pt develop suicidal ideation or homicidal ideation, worsening of symptoms or severe side effects of the meds. Prescriptions/Medication Reconciliation: MILPiprazole [Abilify] 10 mg PO HS #60 tab hydrOXYzine HCl [Atarax] 25 mg PO BID PRN #60 tab PRN Reason: Anxiety Mirtazapine [Remeron] 15 mg PO HS #30 tab - Smoking Cessation Smoking Cessation Medication prescribed: No - Antipsychotic Medications Pt discharged on 2 or more routine antipsychotic medications: No
== END 2017-02-28 14:27 | disposition home or self-care (01) | DRG 885 ==
LOC: C.ER 11:27 → C.9E 14:15 → C.5E 15:33
PROVIDERS: ADMIT Psychiatry & Neurology Psychiatry; ATTEND Psychiatry & Neurology Psychiatry
PROC: GZHZZZZ Group Psychotherapy (ICD-10-PCS; principal; 2017-02-22)
PROC: GZ58ZZZ Individual Psychotherapy, Cognitive-Behavioral (ICD-10-PCS; 2017-02-22)
PROC: GZ56ZZZ Individual Psychotherapy, Supportive (ICD-10-PCS; 2017-02-22)
DX: F25.0 Schizoaffective disorder, bipolar type (principal); Z59.0 Homelessness; I10 Essential (primary) hypertension; E66.9 Obesity, unspecified; J45.909 Unspecified asthma, uncomplicated; F41.9 Anxiety disorder, unspecified